=== PATIENT | male | born 1950 | race Caucasian/White ===

== ENCOUNTER → 2017-04-19 | Outpatient (CLI) | payer OTHER ==
[~2017-04-19] MED LIST: REGADENOSON 0.4 MG/5 ML DISP.SYRIN. IV ONE
--- NOTE | 2017-04-19 15:59 | PCVCIMAG ---
APPROVED REPORT Exam: Nuclear Stress Test Indication: Chest Pain, Dyspnea, CAD, Patient Location: Out patient Stress Nurse: Aleyda Higgins RN, Brisa Torres RN MA Tech:Jimmy Blanco NMTCB Ht: 5 ft 11 in Wt: 255 lbs BSA: 2.34 m2 HR: 60 bpm BP: 139/83 mmHg BMI: 35.5 Rhythm: SR Medical History Medical History: Age, hyperlipidemia, HTN, CAD, Medications: ASA, Atorvastatin, Zetia, HCTZ, Vascepa, Irbesartan, Bystolic (held 24 hours) Allergies: NKDA Pretest Chest Pain Characteristics: No chest pain Exercise History: Physically active NM EXAM: Myocardial Perfusion REST/STRESS Imaging Protocol: Rest Tc-99m/Stress Tc-99m 1 day Resting Data Rest SPECT myocardial perfusion imaging was performed in supine position 45 minutes following the intravenous injection of 17.2 mCi of Tc-99m Sestamibi. Time of rest injection: 1230 Pharmacologic Stress Pharmacologic stress test was performed by injecting Regadenoson 0.4 mg IV push followed by the intravenous injection of 32.6 mCi of Tc-99m Sestamibi. Time of stress injection: 1345 The images were gated to evaluate regional wall motion and calculate left ventricular ejection fraction. Study Quality Study: Good Study Data Post stress, the left ventricular ejection was 61%.. SSS: 2 SRS: 0 SDS: 2 TID = 1.10. Perfusion Medium sized area of mild reversible ischemia involving the mid/basal inferior left ventricle consistent with known PDA occlusion. Wall Motion Normal left ventricular size and function with no regional wall motion abnormalities. Nuclear Conclusion Medium sized area of mild reversible ischemia involving the mid/basal inferior left ventricle consistent with known PDA occlusion. Normal left ventricular size and function with no regional wall motion abnormalities. Post stress, the left ventricular ejection was 61%.. No change since prior study dated January 2014. Interpreted by: Josh Castaneda MD Electronically Approved: 04/19/2017 15:31:59 Stress Test Details Stress Test: Pharmacologic stress was paired with low level exercise. Reason for pharmacologic stress test: Pending shoulder surgery. HR Resting HR: 60 bpmMax Heart Rate (APMHR): 155 bpm Max HR Achieved: 88 bpmTarget HR (85% APMHR): 131 bpm % of APMHR: 56 Recovery HR: 73 bpm BP Resting BP: 139/83 mmHg Max BP: 130/76 mmHg ECG Resting ECG: Sinus Rhythm Stress ECG: Sinus Rhythm Arrhythmia: None Recovery ECG: Sinus Rhythm Clinical Reason for Termination: Completed protocol Stress Symptoms: Dyspnea Symptoms resolved during recovery. Stress ECG Conclusion ECG: Non-ischemic Clinical: Non-ischemic <Conclusion> ECG: Non-ischemic Clinical: Non-ischemic
== END | disposition home or self-care (01) ==
LOC: EDSTATUS 06:39 → PCVCIMAG 12:22 → EDSTATUS 13:31
PROVIDERS: ATTEND Internal Medicine Cardiovascular Disease
DX: I25.10 Atherosclerotic heart disease of native coronary artery without angina pectoris (principal); E78.00 Pure hypercholesterolemia, unspecified; K52.9 Noninfective gastroenteritis and colitis, unspecified; I10 Essential (primary) hypertension; M19.90 Unspecified osteoarthritis, unspecified site; Z79.82 Long term (current) use of aspirin; Z79.899 Other long term (current) drug therapy; Z96.641 Presence of right artificial hip joint
CPT/HCPCS: 78452; 93017; A9500; J2785

== ENCOUNTER → 2018-01-20 | Outpatient (CLI) | payer OTHER | END | disposition home or self-care (01) | LOC: PCVCCLINIC 11:46 | DX: I25.10 Atherosclerotic heart disease of native coronary artery without angina pectoris (principal); E78.00 Pure hypercholesterolemia, unspecified; I10 Essential (primary) hypertension; Z79.82 Long term (current) use of aspirin; Z79.899 Other long term (current) drug therapy; Z87.891 Personal history of nicotine dependence | CPT/HCPCS: 80061; 93005; G0463 ==

== ENCOUNTER → 2018-10-27 | Outpatient (CLI) | payer MEDICARE, OTHER | END | disposition home or self-care (01) | LOC: PCVCCLINIC 15:27 | PROVIDERS: ATTEND Internal Medicine Cardiovascular Disease | DX: I25.10 Atherosclerotic heart disease of native coronary artery without angina pectoris (principal); E78.00 Pure hypercholesterolemia, unspecified; I10 Essential (primary) hypertension; E78.1 Pure hyperglyceridemia; Z87.891 Personal history of nicotine dependence; Z79.82 Long term (current) use of aspirin | CPT/HCPCS: 93005; G0463 ==

== ENCOUNTER → 2018-11-23 | Outpatient (CLI) | payer MEDICARE, OTHER ==
--- NOTE | 2018-11-23 16:54 | PCVCIMAG ---
APPROVED REPORT Study performed: 11/23/2018 14:53:11 Exam: Stress Echocardiogram Indication: Hyperlipidemia, Hypertension Patient Location: Echo lab Stress Nurse: Laura Hunt RN Status: routine Ht: 6 ft 1 in HR: 72 bpm BP: 118/80 mmHg Rhythm: NSR Medical History Medical History: Hyperlipidemia, HTN Procedure The patient underwent an Exercise Stress Test using the Usman Protocol. Blood pressure, heart rate, and EKG were monitored. An Echocardiogram was performed by environmental field technician in four stages in quad fashion. At peak stress, four selected images were obtained and placed side by side with resting images for comparison. Stress Test Details Stress Test: Exercise stress testing was performed using a Usman protocol. HR Resting HR: 72 bpmMax Heart Rate (APMHR): 154 bpm Max HR Achieved: 131 bpmTarget HR (85% APMHR): 130 bpm % of APMHR: 85 Recovery HR: 84 bpm HR response to stress: Normal HR response to stress BP Resting BP: 118/80 mmHg Max BP: 190/110 mmHg Recovery BP: 140/90 mmHg BP response to stress: Normal blood pressure response to stress. ECG Resting ECG: Sinus Rhythm Stress ECG: Sinus Rhythm Recovery ECG: Sinus Rhythm Clinical Reason for Termination: Maximal effort Exercise duration: 7 min 22 sec Highest Stage Achieved: Stage 3: 3.4 mph at 14% grade. Exercise capacity: 10.10 METs Overall Exercise Capacity for Age: Normal Pre-Stress Echo The resting Echocardiogram showed normal left ventricular contractility with an estimated Ejection Fraction of about 55-60%. Normal wall motion in all segments on baseline images. Post-Stress Echo The stress Echocardiogram showed normal left ventricular contractility with an estimated Ejection Fraction of about 60-65%. Normal augmentation of wall motion in all segments on post stress images. Clinical No clinical or ECG evidence for ischemia. Conclusion Clinical Response: Non-ischemic Exercise Capacity: Average Stress ECG Response: Non-ischemic Stress Echo Images: Non-ischemic The left ventricle is normal in size and wall thickness in both the rest and stress images. Other Information Study Quality: Technically Difficult <Conclusion> The left ventricle is normal in size and wall thickness in both the rest and stress images.
== END | disposition home or self-care (01) ==
LOC: PCVCIMAG 14:10
PROVIDERS: ATTEND Internal Medicine Cardiovascular Disease
DX: I10 Essential (primary) hypertension (principal); E78.5 Hyperlipidemia, unspecified
CPT/HCPCS: 93325; 93351